=== PATIENT | male | born 1995 | race African-American/Black ===

== ENCOUNTER 2021-01-25 06:22 | Emergency (ER) | payer OTHER ==
[2021-01-25 06:55] VITALS: BMI 32.3
[2021-01-25 09:10] LABS: HEMATOCRIT 44.9 % (35.4-49); HEMOGLOBIN 15.6 GM/dL (11.7-16.9); MCH 30.1 pg (25.7-33.7); MCHC 34.7 g/dl (32.0-35.9); MEAN CELL VOLUME 86.6 fl (80-96); PLATELET COUNT 291 10^3/uL (134-434); RBC 5.19 M/mm3 (4.00-5.60); RDW 14.6 % (11.9-15.9); WHITE BLOOD COUNT 10.4 K/mm3 (4.0-10.0)
[2021-01-25] MEDS ORDERED: FAMOTIDINE 10 MG TABLET PO ONE (09:10)
[2021-01-25] MEDS ORDERED: MAG HYDROX/AL HYDROX/SIMETH 30 ML UNIT-DOSE CUP PO ONE (09:10)
[2021-01-25] MEDS ORDERED: FAMOTIDINE 10 MG TABLET ONE (09:15)
[2021-01-25] MEDS ORDERED: MAG HYDROX/AL HYDROX/SIMETH 30 ML UNIT-DOSE CUP ONE (09:15)
[2021-01-25 09:39] LABS: CHLORIDE 104 mmol/L (98-107); SODIUM 137 mmol/L (136-145)
[2021-01-25 09:45] LABS: ALBUMIN 4.4 g/dl (3.4-5.0); ANION GAP 8 MMOL/L (8-16); BLOOD UREA NITROGEN 13.5 mg/dL (7-18); CALCIUM 9.3 mg/dL (8.5-10.1); CO2 25 mmol/L (21-32)
[2021-01-25 09:46] LABS: GLUCOSE,RANDOM 100 mg/dL (74-106)
[2021-01-25 09:49] LABS: CREATININE 0.9 mg/dL (0.55-1.3); SGOT/AST 32 U/L (15-37)
[2021-01-25 09:50] LABS: BILIRUBIN,TOTAL 0.4 mg/dL (0.2-1); TOT PROT 8.1 g/dl (6.4-8.2)
[2021-01-25 09:52] LABS: ALK PHOS 126 U/L (45-117)
[2021-01-25 09:54] LABS: SGPT/ALT 40 U/L (13-61)
[2021-01-25 11:07] VITALS: BP 138/82; PULSE 90; TEMP 97.9
== END 2021-01-25 11:08 | disposition home or self-care (01) ==
LOC: JER 06:22
DX: R07.89 Other chest pain (principal)
CPT/HCPCS: 36415; 71046-TC-FY; 80053; 82550; 82553; 84484; 85027; 93005; 93010; 99285-25

== ENCOUNTER 2023-10-10 20:57 | Emergency (ER) | payer OTHER ==
[2023-10-10 21:05] VITALS: BMI 28.7
[2023-10-10] MEDS ORDERED: FENTANYL CITRATE/PF 50 MCG/ML VIAL ONE (23:44)
[2023-10-10 23:59] LABS: BASO % 0.5 % (0-2.0); EOS % 0.5 % (0-4.5); HEMATOCRIT 46.3 % (35.4-49); HEMOGLOBIN 15.6 GM/dL (11.7-16.9); LYMPH % 13.4 % (8-40); MCH 29.8 pg (25.7-33.7); MCHC 33.6 g/dl (32.0-35.9); MEAN CELL VOLUME 88.5 fl (80-96); MEAN PLT VOLUME 7.8 fl (7.5-11.1); MONO % 4.4 % (3.8-10.2); NEUT % 81.2 % (42.8-82.8); PLATELET COUNT 280 10^3/uL (134-434); RBC 5.23 M/mm3 (4.00-5.60); RDW 14.5 % (11.9-15.9); WHITE BLOOD COUNT 12.1 K/mm3 (4.0-10.0)
[2023-10-11] MEDS: SODIUM CHLORIDE 0.9% 1000 ML INFUS.BAG IV ONE (00:06)
[2023-10-11] MEDS ORDERED: FENTANYL CITRATE/PF 50 MCG/ML VIAL ONE (00:12)
[2023-10-11 00:13] LABS: INR 0.99 (0.83-1.09); PROTHROMBIN TIME (PATIENT) 11.2 SEC (9.7-13.0)
[2023-10-11 00:15] LABS: ACTIVATED PTT 34.6 SECONDS (25.2-36.5)
[2023-10-11 00:18] LABS: POTASSIUM 4.1 mmol/L (3.5-5.1)
[2023-10-11 00:20] LABS: ALBUMIN 4.1 g/dl (3.4-5.0); CALCIUM 9.1 mg/dL (8.5-10.1)
[2023-10-11 00:21] LABS: BLOOD UREA NITROGEN 13.4 mg/dL (7-18)
[2023-10-11 00:24] LABS: CREATININE 1.1 mg/dL (0.55-1.3)
[2023-10-11 00:25] LABS: BILIRUBIN,TOTAL 0.3 mg/dL (0.2-1); TOT PROT 7.6 g/dl (6.4-8.2)
[2023-10-11] MEDS: FENTANYL CITRATE/PF 50 MCG/ML VIAL IVPUSH ONE (00:28)
[2023-10-11] MEDS ORDERED: morphine SULFATE 4 MG/ML VIAL ONE (00:57)
[2023-10-11] MEDS ORDERED: DIPHTH,PERTUSS(ACELL),TET 0.5 ML DISP.SYRIN IM ONE (00:57)
[2023-10-11] MEDS: DIPHTH,PERTUSS(ACELL),TET 0.5 ML DISP.SYRIN IM ONE (01:36)
[2023-10-11] MEDS: morphine CARPU-JECT 4 MG/1 ML DISP.SYRIN IVPUSH ONE (01:40)
[2023-10-11 01:41] VITALS: BP 128/88; PULSE 80; RESP 19; TEMP 98.7
== END 2023-10-11 01:45 | disposition short-term general hospital (02) ==
LOC: JER 20:57
PROC: 3E033NZ Introduction of Analgesics, Hypnotics, Sedatives into Peripheral Vein, Percutaneous Approach (ICD-10-PCS; principal; 2023-10-11)
PROC: 3E033NZ Introduction of Analgesics, Hypnotics, Sedatives into Peripheral Vein, Percutaneous Approach (ICD-10-PCS; 2023-10-11)
PROC: 3E033NZ Introduction of Analgesics, Hypnotics, Sedatives into Peripheral Vein, Percutaneous Approach (ICD-10-PCS; 2023-10-11)
PROC: 3E0234Z Introduction of Serum, Toxoid and Vaccine into Muscle, Percutaneous Approach (ICD-10-PCS; 2023-10-11)
DX: S01.81XA Laceration without foreign body of other part of head, initial encounter (principal); S10.93XA Contusion of unspecified part of neck, initial encounter; R00.0 Tachycardia, unspecified; X99.1XXA Assault by knife, initial encounter; Z20.822 Contact with and (suspected) exposure to COVID-19; Z23 Encounter for immunization
CPT/HCPCS: 0241U-QW; 36415; 70498-TC; 80053; 85025; 85610; 85730; 86850; 86900; 86901; 90471; 90715; 96374; 96375; 96376; 99285-25; Q9967